=== PATIENT | female | born 1935 | race Caucasian/White ===

== ENCOUNTER 2016-11-08 00:06 | Outpatient (CLI) | payer MEDICARE, OTHER | END 2016-11-08 00:07 | disposition critical access hospital (66) | LOC: EMS 00:06 | PROVIDERS: ATTEND Surgery | DX: R07.9 Chest pain, unspecified (principal) | CPT/HCPCS: A0425; A0427 ==

== ENCOUNTER 2016-11-08 00:31 | Emergency (ER) | payer MEDICARE, OTHER ==
--- NOTE | 2016-11-08 01:47 | ED Physician Documentation ---
PD HPI CHEST PAIN - Stated complaint Stated Complaint: CP - Chief complaint Chief Complaint: Cardiac - History obtained from History obtained from: Patient - History of Present Illness Timing - onset: Enter time (22:45) Timing - onset during: Rest Timing - duration: Minutes (15-20) Timing - details: Abrupt onset, Now resolved, Constant Pain level max: 5 Pain level now: 0 Quality: Pain Location: Substernal Radiation: Other (no radiation) Improved by: Nothing Worsened by: Other (no exacerbating factors) Associated symptoms: No: Shortness of air, Diaphoresis, Nausea, Vomiting, Feeling faint / dizzy, General Weakness, Palpitations, Cough Similar symptoms before: Has not had sx before Recently seen: Not recently seen - Additional information Additional information: patient complains of sudden onset of chest pain 10:45 PM tonight while reading in bed. pain has resolved, lasted approximately 15 to 20 minutes. No exacerbating or ameliorating factors. Patient denies history of similar symptoms. Review of Systems Constitutional: reports: Reviewed and negative Cardiac: reports: Chest pain / pressure. denies: Palpitations, Pedal edema, Calf pain Respiratory: denies: Dyspnea GI: reports: Reviewed and negative PD PAST MEDICAL HISTORY - Past Medical History Cardiovascular: None Respiratory: None Neuro: None Endocrine/Autoimmune: None GI: None [employer]IST: Breast cancer : None HEENT: None Psych: None Musculoskeletal: None Derm: Rosacea - Past Surgical History Past Surgical History: Yes - Present Medications Home Medications: Ambulatory Orders Medication Instructions Recorded Confirmed Cephalexin 500 mg PO TID #15 capsule 11/01/15 11/08/16 Lisinopril 10 mg PO DAILY #20 tablet 11/08/16 - Allergies Allergies/Adverse Reactions: Allergies Allergy/AdvReac Type Severity Reaction Status Date / Time Penicillins Allergy Hives Verified 11/08/16 00:37 - Social History Does the pt smoke?: No Smoking Status: Never smoker Does the pt drink ETOH?: Yes Does the pt have substance abuse?: No - Immunizations Immunizations are current?: Yes - POLST Patient has POLST: Yes POLST Status: DNR PD ED PE NORMAL - Vitals Vital signs reviewed: Yes - General General: Alert and oriented X 3, No acute distress, Well developed/nourished - Cardiac Cardiac: RRR, No murmur - Respiratory Respiratory: No respiratory distress, Clear bilaterally - Abdomen Abdomen: Soft, Non tender - Derm Derm: Normal color, Warm and dry - Extremities Extremities: No edema Results - Vitals Vitals: Vital Signs - 24 hr 11/08/16 11/08/16 11/08/16 00:34 01:54 03:24 Temperature 36.2 C L 36.9 C Heart Rate 75 75 78 Respiratory 18 16 16 Rate Blood Pressure 198/87 H 184/85 H 166/82 H O2 Saturation 95 96 99 Oxygen O2 Source Room air - EKG (time done) No standard instances Rate: Rate (enter#) (72) Rhythm: NSR, LAE [place]: LAD Intervals: Normal HI QRS: Normal Ischemia: Normal ST segments - Labs Labs: Laboratory Tests 11/08/16 11/08/16 11/08/16 00:50 00:50 00:50 WBC 9.3 RBC 3.97 L Hgb 12.3 Hct 37.0 MCV 93.2 MCH 31.1 H MCHC 33.3 RDW 14.7 Plt Count 121 L MPV 10.9 H Neut # 6.4 Lymph # 1.6 [place] # 1.0 Eos # 0.2 Baso # 0.0 Absolute Nucleated RBC 0.01 Nucleated RBCs 0.1 Sodium 137 Potassium 3.6 Chloride 102 Carbon Dioxide 25 Anion Gap 10.0 BUN 19 Creatinine 0.8 Estimated GFR (MDRD) 69 L Glucose 99 Calcium 8.9 Total Bilirubin 0.6 AST 27 ALT 21 Alkaline Phosphatase 38 L Troponin I < 0.04 Total Protein 6.4 L Albumin 3.8 Globulin 2.6 Albumin/Globulin Ratio 1.5 Lipase 23 - Rads (name of study) chest xray Radiology: Prelim report reviewed, See rad report PD MEDICAL DECISION MAKING - ED course Complexity details: reviewed results, re-evaluated patient, considered differential, d/w patient Departure - Departure Disposition: 01 Home, Self Care Clinical Impression: Chest pain, Hypertension Condition: Good Instructions: ED Chest Pain Atypical Unkn Cause, ED Hypertension New Begin Tx Prescriptions: Lisinopril 10 mg PO DAILY #20 tablet Discharge Date/Time: 11/08/16 03:22
[2016-11-08 01:48] LABS: BASOPHILS % (AUTO) 0.4 %; EOSINOPHILS # (AUTO) 0.2 10^3/uL (0.0-0.7); EOSINOPHILS % (AUTO) 2.1 %; HGB - HEMOGLOBIN 12.3 g/dL (12.0-16.0); LYMPHOCYTES # (AUTO) 1.6 10^3/uL (1.5-3.5); LYMPHOCYTES % (AUTO) 17.7 %; MEAN CORPUSCULAR HEMOGLOBIN 31.1 pg (27.0-31.0); MEAN CORPUSCULAR HGB CONC 33.3 g/dL (32.0-36.0); MEAN CORPUSCULAR VOLUME 93.2 fL (81.0-99.0); MEAN PLATELET VOLUME 10.9 fL (7.9-10.8); MONOCYTES % (AUTO) 10.7 %; NEUTROPHILS # (AUTO) 6.4 10^3/uL (1.5-6.6); NEUTROPHILS % (AUTO) 69.1 %; NUCLEATED RED BLOOD CELLS AUTO 0.1 /100WBC; RED BLOOD COUNT 3.97 10^6/uL (4.20-5.40); RED CELL DISTRIBUTION WIDTH 14.7 % (12.0-15.0); UNCORRECTED WHITE BLOOD COUNT 9.3 x10^3/uL; WHITE BLOOD COUNT 9.3 x10^3/uL (4.8-10.8)
[2016-11-08 01:49] LABS: ALBUMIN/GLOBULIN RATIO 1.5 (1.0-2.2); BILIRUBIN,TOTAL 0.6 mg/dL (0.2-1.0); CALCIUM 8.9 mg/dL (8.5-10.3); CREATININE 0.8 mg/dL (0.4-1.0); POTASSIUM 3.6 mmol/L (3.5-5.0); TOTAL PROTEIN 6.4 g/dL (6.7-8.2)
--- NOTE | 2016-11-08 02:06 | XRAY Preliminary Report ---
Exam: XR Chest 2 View PA/LAT IMPRESSION: Stable appearance of the chest without acute cardiopulmonary abnormality. [facility] SITE ID: [id number]
--- NOTE | 2016-11-08 02:08 | XRAY Report ---
EXAM: CHEST RADIOGRAPHY EXAM DATE: 11/08/2016 01:53 AM. CLINICAL HISTORY: Chest pain. COMPARISON: 12/09/2002. TECHNIQUE: 2 views. FINDINGS: Lungs/Pleura: No focal opacities evident. No pleural effusion. No pneumothorax. Normal volumes. Mediastinum: Heart and mediastinal contours are unremarkable. Other: Small calcifications within the left breast. IMPRESSION: Stable appearance of the chest without acute cardiopulmonary abnormality. [facility] Referring Provider Line: [phone] SITE ID: [id number]
[2016-11-08] MEDS ORDERED: LISINOPRIL 5 MG TABLET PO STA (03:02)
[2016-11-08] MEDS ORDERED: LISINOPRIL 5 MG TABLET ONE (03:15)
[2016-11-08 03:25] VITALS: BP 166/82
== END 2016-11-08 03:22 | disposition home or self-care (01) ==
LOC: EDUNIT# → ED 00:31
DX: R07.89 Other chest pain (principal); I10 Essential (primary) hypertension; Z85.3 Personal history of malignant neoplasm of breast; Z66 Do not resuscitate
CPT/HCPCS: 36415; 71020; 80053; 83690; 84484; 85025; 93005; 93010; 99283; 99284; A9270

== ENCOUNTER 2017-01-22 17:00 | Outpatient (CLI) | payer MEDICARE, OTHER ==
--- NOTE | 2017-01-24 08:21 | Ultrasound Report ---
EXAM: RENAL ULTRASOUND EXAM DATE: 01/22/2017 05:34 PM. CLINICAL HISTORY: Chronic UTI. COMPARISON: None. TECHNIQUE: Real-time scanning was performed with static images obtained. FINDINGS: Right Kidney: 10 x 3.7 x 5 cm. Normal echotexture with no stones, contour-deforming masses, or hydron ephrosis. Left Kidney: 10.2 x 4.4 x 4.4 cm. Normal echotexture with no stones, contour-deforming masses, or hyd ronephrosis. Bladder: Bilateral jets seen. The prevoid bladder volume was 182 cc. The postvoid bladder volume was 4.8 cc. IMPRESSION: 1. No renal mass, stones or hydronephrosis. 2. Normal bladder. [facility] Referring Provider Line: [phone] SITE ID: [id number]
== END 2017-01-22 17:01 | disposition home or self-care (01) ==
LOC: DI 17:00
PROVIDERS: ATTEND Nurse Practitioner Family
DX: N39.0 Urinary tract infection, site not specified (principal)
CPT/HCPCS: 76770

== ENCOUNTER 2018-02-01 13:43 | Outpatient (CLI) | payer MEDICARE, OTHER ==
--- NOTE | 2018-02-01 18:07 | Ultrasound Report ---
Procedure Date: 02/01/2018 Accession Number: [id number] / [id number] Procedure: US - Carotid Doppler Complete CPT Code: FULL RESULT: EXAM: BILATERAL CAROTID AND VERTEBRAL ARTERY DUPLEX DOPPLER ULTRASOUND: EXAM DATE: 02/01/2018 04:00 PM CLINICAL HISTORY: Left bruit, retinal artery occlusion. Shortness of breath. COMPARISON: None. TECHNIQUE: Grayscale imaging, color Doppler, and duplex spectral Doppler were used to evaluate the carotid and vertebral arteries bilaterally. Static images were obtained. FINDINGS: Minimal focal calcific plaque near the carotid bulbs and involving the proximal external carotid arteries bilaterally without evidence of significant stenosis by bonner scale or color Doppler (less than 25% stenosis estimated.) External carotid arteries are patent. Normal antegrade flow is present in bilateral vertebral arteries. VELOCITIES (cm/sec): Right: RCCA Prox: PSV 62 cm/sec. RCCA Dist: PSV 64 cm/sec, EDV 16 cm/sec. RECA: PSV 95 cm/sec. R Bulb: PSV 69 cm/sec, EDV 19 cm/sec, ICA/CCA ratio 1.07. PAM Prox: PSV 76 cm/sec, EDV 20 cm/sec, ICA/CCA ratio 1.18. PAM Mid: PSV 74 cm/sec, EDV 24 cm/sec, ICA/CCA ratio 1.15. PAM Dist: PSV 66 cm/sec, EDV 19 cm/sec, ICA/CCA ratio 1.03. RVA: PSV 55 cm/sec. RVA flow direction: Antegrade. Left: LCCA Prox: PSV 75 cm/sec. LCCA Dist: PSV 79 cm/sec, EDV 19 cm/sec. LECA: PSV 80 cm/sec. L Bulb: PSV 57 cm/sec, EDV 17 cm/sec, ICA/CCA ratio 0.72. LICA Prox: PSV 62 cm/sec, EDV 26 cm/sec, ICA/CCA ratio 0.78. LICA Mid: PSV 46 cm/sec, EDV 18 cm/sec, ICA/CCA ratio 0.58. LICA Dist: PSV 74 cm/sec, EDV 29 cm/sec, ICA/CCA ratio 0.93. LVA: PSV 33 cm/sec. LVA flow direction: Antegrade. ICA diameter stenosis: Right: <50% by velocity and <70% by NASCET criteria. Left: <50% by velocity and <70% by NASCET criteria. IMPRESSION: 1. Minimal bilateral carotid artery plaquing near the carotid bulbs and involving the proximal external carotid arteries. 2. In the right carotid artery there are no elevated carotid artery velocities to suggest hemodynamically significant stenosis. 3. In the left carotid artery there are no elevated carotid artery velocities to suggest hemodynamically significant stenosis. 4. Normal antegrade flow is present in bilateral vertebral arteries. General Recommendations: Stenosis =50% ICA - Follow-up ultrasound 6-12 months Stenosis <50% ICA - High Risk Patient with plaque - Follow-up ultrasound 1-2 years Normal Study but High Risk Patient - Follow-up ultrasound 3-5 years Management recommendations and diagnostic criteria are based on current IAC endorsed standards in Carotid Artery Stenosis: Grayscale and Doppler Ultrasound Diagnosis. Validated velocity measurements with angiographic measurements and velocity criteria are extrapolated from diameter data as defined by the Society of Radiologists in Ultrasound Consensus Conference Radiology 2003; 229;340-346. [facility]
== END 2018-02-01 13:44 | disposition home or self-care (01) ==
LOC: DI 13:43
PROVIDERS: ATTEND Physician Assistant
DX: R06.02 Shortness of breath (principal); H34.9 Unspecified retinal vascular occlusion; R09.89 Other specified symptoms and signs involving the circulatory and respiratory systems; I07.1 Rheumatic tricuspid insufficiency
CPT/HCPCS: 93306; 93880

== ENCOUNTER 2019-07-11 18:37 | Outpatient (CLI) | payer MEDICARE, OTHER | END 2019-07-11 18:38 | disposition EMS.NT | LOC: EMS 18:37 | PROVIDERS: ATTEND Surgery | DX: R07.9 Chest pain, unspecified (principal) ==

== ENCOUNTER 2021-06-04 11:58 | Outpatient (CLI) | payer MEDICARE, OTHER ==
--- NOTE | 2021-06-04 14:27 | XRAY Report ---
PROCEDURE: Lumbar Spine 2 View INDICATIONS: BILATERAL SCIATICA TECHNIQUE: 3 views of the lumbar spine were acquired. COMPARISON: None. FINDINGS: Bones: 5 [id number] vertebrae are present. There is mild, grade 1 anterolisthesis of L3 on L4 and L4 on L5. Mild grade 1 retrolisthesis of L2 on L3. Multilevel disc space narrowing and endplate o steophyte formation. Facet hypertrophy throughout the mid and lower lumbar spine. No vertebral body c ompression fractures. No suspicious bony lesions. Soft tissues: Overlying bowel gas pattern is normal. No suspicious soft tissue calcifications. IMPRESSION: Multilevel degenerative disc and facet disease. No acute fracture. No osseous lesion. If symptoms and/or clinical suspicion for pathology continue, further assessment with repeat plain film s, or advanced imaging (e.g., CT, MRI, or bone scan) is recommended for further assessment. Reviewed by: Elham Cardona MD on 06/04/2021 2:25 PM PST Approved by: Elham Cardona MD on 06/04/2021 2:25 PM PST Station ID: [id number]
--- NOTE | 2021-06-04 16:58 | XRAY Report ---
PROCEDURE: Hips 2V BILAT INDICATIONS: BILATERAL SCIATICA TECHNIQUE: AP and frog-leg lateral views of the bilateral hip were acquired. COMPARISON: None FINDINGS: Bones: No acute fractures or dislocations. No suspicious bony lesions. The visualized pelvic ring appears intact. Moderate-severe degenerative changes of the bilateral hips. Lower lumbar spondylosis . Soft tissues: No suspicious soft tissue calcifications or masses. Multiple pelvic calcifications li tawnya representing phleboliths. IMPRESSION: Bilateral hip without acute fracture or malalignment. Moderate-severe bilateral hip osteoarthrosis. Reviewed by: Steve Malagon MD on 06/04/2021 4:56 PM PST Approved by: Steve Malagon MD on 06/04/2021 4:56 PM PST Station ID: [id number]
== END 2021-06-04 11:59 | disposition home or self-care (01) ==
LOC: DI.S 11:58
PROVIDERS: ATTEND Nurse Practitioner Family
DX: M16.0 Bilateral primary osteoarthritis of hip (principal); M47.816 Spondylosis without myelopathy or radiculopathy, lumbar region; M43.16 Spondylolisthesis, lumbar region; M51.36 Other intervertebral disc degeneration, lumbar region

== ENCOUNTER 2021-07-14 15:53 | Outpatient (CLI) | payer MEDICARE, OTHER ==
--- NOTE | 2021-07-14 17:08 | XRAY Report ---
PROCEDURE: Knee 3 View RT INDICATIONS: PAIN OF RIGHT KNEE JOINT TECHNIQUE: 3 views of the right knee(s) were acquired. COMPARISON: None. FINDINGS: Bones: No fractures or dislocations. No suspicious bony lesions. Moderate medial and patellofemora l compartment osteoarthritis with marginal osteophytosis and joint space narrowing. Mild lateral comp artment osteoarthritis. Soft tissues: No joint effusion. No suspicious soft tissue calcifications. IMPRESSION: Tricompartmental osteoarthritis as described above. Reviewed by: Alexsandra Domínguez MD, PhD on 07/14/2021 5:06 PM PST Approved by: Alexsandra Domínguez MD, PhD on 07/14/2021 5:06 PM PST Station ID: [id number]
== END 2021-07-14 15:54 | disposition home or self-care (01) ==
LOC: DI.S 15:53
PROVIDERS: ATTEND Nurse Practitioner Family
DX: M17.11 Unilateral primary osteoarthritis, right knee (principal)

== ENCOUNTER 2022-04-13 12:01 | Outpatient (CLI) | payer MEDICARE, OTHER ==
--- NOTE | 2022-04-13 13:45 | XRAY Report ---
PROCEDURE: Hips 2V BILAT INDICATIONS: BILATERAL HIP JOINT PAIN TECHNIQUE: 3 views of the hip were acquired. COMPARISON: 06/04/2021 FINDINGS: Bones: Moderate bilateral hip arthrosis, similar to 2020 radiographs. Partially visualized sacroiliac and lumbosacral degenerative changes. There might be an impacted fracture at the subcapital region of the left femoral neck. Soft tissues: Pelvic phleboliths. Vascular calcifications. IMPRESSION: Suspected impacted fracture of the left subcapital region of the femoral neck. Consider CT to community health [facility]. Reviewed by: Michael Stapleton MD on 04/13/2022 1:44 PM PDT Approved by: Michael Stapleton MD on 04/13/2022 1:44 PM PDT Station ID: [id number]
--- NOTE | 2022-04-13 13:47 | XRAY Report ---
PROCEDURE: Lumbar Spine 2 View INDICATIONS: CHRONIC LOW BACK PAIN TECHNIQUE: 3 views of the lumbar spine were acquired. COMPARISON: 06/04/2021 FINDINGS: Bones: Increased dextroconvex curvature, which may be partially positional. There are 5 lumbar-type v ertebral bodies. Again seen is 7 to 8 mm of L4 on L5 anterolisthesis. Mild to moderate overall spondylosis, particularly with facet arthropathy in the lower lumbar spine. No acute changes compared to prior Soft tissues: Vascular calcifications. Large colonic gas and stool burden. IMPRESSION: Spondylosis without acute radiographic abnormality. If there is high concern for further derangement, consider MRI evaluation. . Reviewed by: Michael Stapleton MD on 04/13/2022 1:45 PM PDT Approved by: Michael Stapleton MD on 04/13/2022 1:45 PM PDT Station ID: [id number]
== END 2022-04-13 12:02 | disposition home or self-care (01) ==
LOC: DI.S 12:01
PROVIDERS: ATTEND Nurse Practitioner Family
DX: M47.816 Spondylosis without myelopathy or radiculopathy, lumbar region (principal); M25.551 Pain in right hip; M25.552 Pain in left hip